=== PATIENT | female | born 1985 | race African-American/Black ===

== ENCOUNTER 2023-03-24 18:16 | Emergency (ER) | payer SELFPAY ==
[~2023-03-24] VITALS: Ht 165.1 cm; Wt 68.0 kg
[2023-03-24 18:21] VITALS: BP 136/92; O2SAT 99
[2023-03-24] MEDS ORDERED: ACETAMINOPHEN 325MG TABLET PO ONE (20:15)
[2023-03-24 20:18] VITALS: PULSE 80; RESP 18; TEMP 98.7
== END 2023-03-24 20:20 | disposition home or self-care (01) ==
LOC: ER 18:16
DX: S01.81XA Laceration without foreign body of other part of head, initial encounter (principal); X58.XXXA Exposure to other specified factors, initial encounter; Y93.89 Activity, other specified; Y92.89 Other specified places as the place of occurrence of the external cause; Y99.8 Other external cause status
CPT/HCPCS: 81025; 99282; Z7610 ×2